=== PATIENT | female | born 1955 | race Caucasian/White ===

== ENCOUNTER 2018-12-30 11:46 | Day surgery (SDC) | payer MEDICARE, OTHER, SELFPAY ==
[2018-12-30 12:38] VITALS: BP 153/89; PULSE 89; RESP 15; TEMP 36.3; O2SAT 98; BMI 29.4
--- NOTE | 2018-12-30 13:45 | P.HP_ITS ---
History of Present Illness Date Patient Seen: 12/30/18 Time Patient Seen: 13:44 Chief complaint: [id number] SCREENING COLONOSCOPY W/POSS BX Narrative: First screening colonoscopy Patient History Social History household members: spouse Family & Social History Social History: household members spouse Meds Home Medications Medication Instructions Recorded Confirmed Type No Known Home Medications 12/30/18 12/30/18 History Allergies Allergy/AdvReac Type Severity Reaction Status Date / Time No Known Allergies Allergy Uncoded 09/17/17 12:50 Exam Vital Signs (past 8 hours): - 12/30/18 12:38 Temperature 97.3 F L Pulse Rate 89 Respiratory Rate 15 Blood Pressure 153/89 H Pulse Oximetry 98 Oxygen Delivery Method Room Air Narrative Exam Narrative: Oropharynx free of lesions Chest clear to auscultation percussion Cardiac exam reveals no S3 or murmur Assessment & Plan Assessment & Plan narrative: Need for colorectal cancer screening with 1st colo noscopy. Risks, benefits, alternatives have been explained.
--- NOTE | 2018-12-30 13:45 | PM.OP.ENDO ---
Operative Date/Time/Diagnoses Date of procedure: 12/30/18 Time of procedure: 13:45 Pre-op diagnosis: See indication and findings Procedure & Clinicians Study performed: Colonoscopy Same procedure as scheduled: Yes Indications: First colonoscopy Surgeon: Yayo Ash Procedure Notes Procedure in detail: After informed consent was obtained the patient was placed in left lateral decubitus position. The video colonoscope was introduced in the rectum slowly advanced cecum. On slow withdrawal mucosa was carefully examined. The scope was removed. The patient tolerated procedure well. The preparation was good. Blood loss none Complications none Sedation Total sedation time 20 minutes Versed 5 mg fentanyl 100 micro g IV titration Findings 1. Normal colonoscopy to cecum Patient should have follow-up colonoscopy in 10 years.
[2018-12-30] MEDS: SODIUM CHLORIDE 0.9% 1,000 ML 100 ML IV (14:25)
[2018-12-30] MEDS: MIDAZOLAM 5 MG/5 ML VIAL IV (14:28)
[2018-12-30] MEDS: fentaNYL 250 MCG/5 ML INJ IV (14:29)
[2018-12-30 14:31] VITALS: BP 133/85; PULSE 88; RESP 14; TEMP 36.6; O2SAT 96
--- NOTE | 2018-12-30 14:35 | SUR.PHASEI ---
1433 TO PACU awake, oriented, Denies discomfort; 1437 HOB elevated, juice given. Talking about her grandchild
[2018-12-30 14:36] VITALS: BP 138/92; PULSE 95; RESP 22; O2SAT 94
[2018-12-30 14:41] VITALS: BP 148/97; PULSE 88; RESP 15; O2SAT 95
[2018-12-30 15:03] VITALS: BP 132/78; PULSE 93; RESP 16; TEMP 36.4; O2SAT 96
== END 2018-12-30 15:16 | disposition home or self-care (01) ==
LOC: ENDO 11:49
PROVIDERS: PCP Internal Medicine; Visit Provider Internal Medicine Gastroenterology
PROC: 0DJD8ZZ Inspection of Lower Intestinal Tract, Via Natural or Artificial Opening Endoscopic (ICD-10-PCS; CPT 45378; principal; 2018-12-30 14:00)
DX: Z12.11 Encounter for screening for malignant neoplasm of colon (principal)
CPT/HCPCS: G0121; J2250; J3010

== ENCOUNTER → 2023-07-01 08:33 | Outpatient (CLI) | payer MEDICARE, OTHER, SELFPAY ==
[2023-07-01 09:34] LABS: Add Manual Diff / Slide Review NO; Basophils Absolute Auto 0 /uL (0-100); Eosinophils Absolute Auto 0 /uL (0-450); Eosinophils Percent Auto 0.5 % (2-4); Hematocrit 41.2 % (36-46); Hemoglobin 13.6 g/dL (12.0-16.0); Lymphocytes Absolute Auto 1200 /uL (1100-4500); Lymphocytes Percent Auto 23.2 % (25-40); Mean Corpuscular HGB Conc 32.9 % (30-36); Mean Corpuscular Hemoglobin 29.2 PG (26-34); Mean Corpuscular Volume 88.8 fL (80-100); Monocytes Absolute Auto 200 /uL (0-900); Monocytes Percent Auto 4.9 % (3-14); Neutrophils Absolute Auto 3600 /uL (1500-7000); Neutrophils Percent Auto 70.4 % (50-75); Platelet Count 272 X10^3/uL (150-400); Red Blood Cell Count 4.64 X10^6/uL (4.0-5.2); Red Cell Distribution Width 13.6 % (11.6-14.8); White Blood Cell Count 5.1 X10^3/uL (4.5-11.0)
[2023-07-01 10:03] LABS: Alanine Aminotransferase 22 IU/L (<35); Albumin 4.8 g/dL (3.5-5.0); Albumin Globulin Ratio 1.5 (1.0-2.8); Alkaline Phosphatase 64 U/L (38-126); Aspartate Aminotransferase 36 IU/L (14-36); BUN Creatinine Ratio 29.3 (6-22); Bilirubin Total 0.8 mg/dL (0.2-1.3); Blood Urea Nitrogen 22 mg/dL (7-17); Calcium 10.2 mg/dL (8.4-10.2); Carbon Dioxide 26 mmol/L (22-32); Chloride 101 mmol/L (98-107); Cholesterol 272 mg/dL (140-199); Estimated Glomerular Filt Rate > 60 mL/min (>60); Globulin 3.2 g/dL (1.7-4.1); Glucose 107 mg/dL (80-110); HDL Cholesterol 102 mg/dL (40-60); HEMOLYSIS < 15 (0-50); LDL Cholesterol Calculated 153 mg/dL (<100); Potassium 4.8 mmol/L (3.4-5.1); Sodium 138 mmol/L (137-145); Triglycerides 85 mg/dL (35-150)
[2023-07-01 10:50] LABS: TSH w/ Reflex to FT4 0.91 uIU/mL (0.47-4.68)
[2023-07-01 12:39] LABS: Hemoglobin A1C% w Est Avg Glu 5.5 % (4.0-6.0)
== END ==
LOC: RESP 08:36
PROVIDERS: PCP Family Medicine; Referring Provider Family Medicine; Visit Provider Family Medicine
DX: R55 Syncope and collapse (principal); E78.5 Hyperlipidemia, unspecified
CPT/HCPCS: 36415; 80053; 80061; 83036; 84443; 85025; 93005

== ENCOUNTER → 2023-10-07 09:48 | Outpatient (CLI) | payer MEDICARE, OTHER, SELFPAY ==
--- NOTE | 2023-10-07 09:50 | DI.RAD.S_ITS ---
PROCEDURE: XR KNEE RT 3V INDICATIONS: right knee pain TECHNIQUE: 3 views of the knee were acquired. COMPARISON: None. FINDINGS: Bones: No fractures or dislocations. No suspicious bony lesions. Moderate medial lateral compartmental joint space narrowing Soft tissues: No joint effusion. No suspicious soft tissue calcifications. IMPRESSION: Moderate joint space narrowing without significant marginal osteophyte Approved by: Javon Luong M.D. on 10/07/2023 at 18:11
== END ==
PROVIDERS: PCP Family Medicine; Referring Provider Anesthesiology; Visit Provider Anesthesiology
DX: M17.31 Unilateral post-traumatic osteoarthritis, right knee (principal); M25.561 Pain in right knee; G89.29 Other chronic pain
CPT/HCPCS: 73562; 99214

== ENCOUNTER → 2023-11-20 07:31 | Outpatient (CLI) | payer MEDICARE, OTHER, SELFPAY ==
[2023-11-20 09:05] LABS: Cholesterol 242 mg/dL (140-199); Triglycerides 104 mg/dL (35-150)
[2023-11-20 09:14] LABS: HDL Cholesterol 118 mg/dL (40-60); LDL Cholesterol Calculated 103 mg/dL (<100)
== END ==
PROVIDERS: PCP Family Medicine; Referring Provider Family Medicine; Visit Provider Family Medicine
DX: E78.5 Hyperlipidemia, unspecified (principal)
CPT/HCPCS: 36415; 80061

== ENCOUNTER → 2024-09-20 09:24 | Outpatient (CLI) | payer MEDICARE, OTHER, SELFPAY ==
[2024-09-20 10:07] LABS: Alanine Aminotransferase 21 IU/L (<35); Albumin Globulin Ratio 2.1 (1.0-2.8); Alkaline Phosphatase 74 U/L (38-126); Aspartate Aminotransferase 31 IU/L (14-36); BUN Creatinine Ratio 25.3 (6-22); Bilirubin Total 0.8 mg/dL (0.2-1.3); Blood Urea Nitrogen 22 mg/dL (7-17); Calcium 10.2 mg/dL (8.4-10.2); Carbon Dioxide 28 mmol/L (22-32); Chloride 103 mmol/L (98-107); Cholesterol 286 mg/dL (140-199); Estimated Glomerular Filt Rate > 60 mL/min (>60); Globulin 2.4 g/dL (1.7-4.1); Glucose 98 mg/dL (80-110); HEMOLYSIS < 15 (0-50); Potassium 4.5 mmol/L (3.4-5.1); Sodium 138 mmol/L (137-145); Total Protein 7.4 g/dL (6.3-8.2); Triglycerides 109 mg/dL (35-150)
[2024-09-20 10:16] LABS: HDL Cholesterol 118 mg/dL (40-60); LDL Cholesterol Calculated 146 mg/dL (<100)
[2024-09-21 15:44] LABS: Hep C Virus Ab w/Reflex Quant NEGATIVE s/c (NEGATIVE)
== END ==
PROVIDERS: PCP Family Medicine; Referring Provider Family Medicine; Visit Provider Family Medicine
DX: Z00.00 Encounter for general adult medical examination without abnormal findings (principal); E78.5 Hyperlipidemia, unspecified; G47.00 Insomnia, unspecified; J30.9 Allergic rhinitis, unspecified
CPT/HCPCS: 36415; 80053; 80061; 86803

== ENCOUNTER → 2025-01-06 10:02 | Outpatient (CLI) | payer MEDICARE, OTHER, SELFPAY ==
--- NOTE | 2025-01-06 10:04 | DI.MG.S_ITS ---
MM diagnostic mammo unilat RT: 01/06/2025. BI-RADS: 2 CLINICAL: 69-year old female for right diagnostic mammogram that is a recall from screening on 12/27/2024. Tyrer-Cuzick lifetime risk of 4.1%. No personal or first-degree family history of breast cancer. The patient has bilateral implants. PRIOR EXAMS 12/27/2024, 10/16/2023, 09/17/2022. MAMMOGRAPHY TECHNIQUE: 2D and 3D (tomosynthesis) digital mammographic views obtained, with additional images as needed for full coverage. Current study was also evaluated with a Computer Aided Detection (CAD) system. DENSITY Right: B. There are scattered areas of fibroglandular density. MAMMOGRAPHY FINDINGS Right: Upper Outer at 9:00, Middle depth, measuring 0.4cm. Previous report: CC only, Outer: The previously described finding corresponds to a skin lesion, which is now marked with a mole marker. There are no suspicious masses, calcifications, or other findings in the breast. IMPRESSION: Right * No evidence of malignancy with benign findings. RECOMMENDATIONS Bilateral * Annual screening mammography. COMMENTS: Findings and recommendations were conveyed to the patient during today's evaluation. OVERALL ASSESSMENT CATEGORY BI-RADS-2: Benign. [employer] recommends annual screening mammography beginning at age 40 for women with average risk of breast cancer. ELECTRONICALLY SIGNED: Tiki Gomez M.D. on 01/06/2025 at 12:49:07 PM PT Interpreting Station ID: [id number]
== END ==
PROVIDERS: PCP Family Medicine; Referring Provider Family Medicine; Visit Provider Family Medicine
DX: R92.8 Other abnormal and inconclusive findings on diagnostic imaging of breast (principal); Z98.82 Breast implant status
CPT/HCPCS: 77065; G0279